=== PATIENT | male | born 1980 | race Caucasian/White ===

== ENCOUNTER 2017-04-02 00:10 | Emergency (ER) | payer SELFPAY ==
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
[2017-04-02 07:19] VITALS: BP 126/82
== END 2017-04-02 07:00 | disposition home or self-care (01) ==
LOC: ED 00:10
DX: S00.03XA Contusion of scalp, initial encounter (principal); Y08.89XA Assault by other specified means, initial encounter; Y93.89 Activity, other specified; Y99.8 Other external cause status; Y92.89 Other specified places as the place of occurrence of the external cause
CPT/HCPCS: 70450; 72125